=== PATIENT | male | born 1955 | race Caucasian/White ===

== ENCOUNTER 2016-07-29 14:30 | Emergency (ER) | payer MEDICAID ==
[~2016-07-29] VITALS: Ht 182.9 cm; Wt 100.0 kg
[~2016-07-29 14:30] MED LIST: ACET-1757 PO; ACET650S21 PO; AMOX1TAB12 PO; AMOX1TAB64 PO; APIX5TAB PO; ASPI-621 PO; CARV-39 PO; CEPH-376 PO; CLIN300C93 PO; DOCU100C8 PO; DOXY100T PO; ENOX40SY4 SQ; ERGO500017 PO; ERTA1VIA IVPB; FURO20TA3 PO; HYDR-3138 PO; HYDR-3240 PO; HYDR-3241 PO; HYDR25TA11 PO; LACT1CAP40 PO; LISI-167 PO; MECL25TA2 PO; METO25TA35 PO; NICO1PAT5 TD; OXYC10TA32 PO; OXYC1TAB7 PO; OXYC5TAB3 PO; POLY17PO5 PO; SENN1TAB7 PO; SULF1TAB3 PO; TEMA15CA6 PO; TRAM-28 PO
[2016-07-29 15:21] LABS: HEMOGLOBIN 19.2 g/dL (13.7-18.0)
[2016-07-29 15:33] LABS: BLOOD UREA NITROGEN 9 mg/dL (7-18)
[2016-07-29 16:59] VITALS: BP 203/95
== END 2016-07-29 19:07 | disposition home or self-care (01) ==
LOC: ED 15:52
DX: R33.8 Other retention of urine (principal); N40.1 Benign prostatic hyperplasia with lower urinary tract symptoms; I73.9 Peripheral vascular disease, unspecified; I12.9 Hypertensive chronic kidney disease with stage 1 through stage 4 chronic kidney disease, or unspecified chronic kidney disease; N18.9 Chronic kidney disease, unspecified
CPT/HCPCS: 36415; 51702; 71010; 74020; 80048; 81001; 82040; 85025; 93005

== ENCOUNTER 2016-08-24 12:12 | Emergency (ER) | payer MEDICAID ==
[~2016-08-24] VITALS: Ht 180.3 cm; Wt 113.6 kg
[~2016-08-24 12:12] MED LIST changes: +TAMS-11 PO
[2016-08-24 13:32] VITALS: BP 159/110
== END 2016-08-24 17:20 | disposition home or self-care (01) ==
LOC: ED 15:46
DX: Z46.6 Encounter for fitting and adjustment of urinary device (principal); R33.9 Retention of urine, unspecified; I10 Essential (primary) hypertension; E66.9 Obesity, unspecified
CPT/HCPCS: 51702; 81001; 87086

== ENCOUNTER 2016-09-03 04:04 | Emergency (ER) | payer MEDICAID ==
[~2016-09-03] VITALS: Ht 180.3 cm; Wt 115.0 kg
[2016-09-03] MEDS ORDERED: LISINOPRIL 20 MG TABLET PO ONE (05:30)
[2016-09-03] MEDS ORDERED: LISINOPRIL 20 MG TABLET ONE (05:33)
[2016-09-03 06:24] VITALS: BP 188/115
== END 2016-09-03 06:25 | disposition home or self-care (01) ==
LOC: ED 04:31
DX: R33.9 Retention of urine, unspecified (principal); I10 Essential (primary) hypertension; I25.2 Old myocardial infarction
CPT/HCPCS: 51701; 51702; 81001; P9612

== ENCOUNTER 2016-10-18 06:07 | Emergency (ER) | payer MEDICAID | END 2016-10-18 07:10 | disposition home or self-care (01) | LOC: ED 06:07 | DX: N40.1 Benign prostatic hyperplasia with lower urinary tract symptoms (principal); R33.8 Other retention of urine | CPT/HCPCS: 99283 ==